=== PATIENT | female | born 1985 ===

== ENCOUNTER 2018-02-28 11:44 | Observation (INO) | payer OTHER ==
[2018-02-28] MEDS ORDERED: Sodium Chloride 0.9% 1,000 ML IV STA (13:03)
--- NOTE | 2018-02-28 13:53 | ED PDOC ---
Syncope/Near Syncope/Dizziness Time Seen by Provider: 02/28/18 12:53 Chief Complaint (Nursing): Headache Chief Complaint (Provider): Dizziness History Per: Patient History/Exam Limitations: no limitations Onset/Duration Of Symptoms: Hrs (this morning) Current Symptoms Are (Timing): Still Present Seizure Or Post-ictal Symptoms: None Fall Associated With With Symptoms: No Additional Complaint(s): Evie Vargas is a 32 year old female, with no significant past medical history, who presents to the emergency department for evaluation of dizziness, nausea, headache, and weakness throughout her body onset since this morning. Patient reports feeling like she is about to pass out and states prior to arrival she had an episode of numbness to her legs and arms but has since resolved. She also reports shakes and chills in her arms. Patient states she is feeling better but still has a headache and dizziness which she states is exacerbated with movement of the head. Patient also had x1 vomiting episode but denies any current weakness, abdominal pain, chest pain or shortness of breath. No further medical complaints. PMD: Clinic Past Medical History Reviewed: Historical Data, Nursing Documentation, Vital Signs Vital Signs: Last Vital Signs Temp 97.7 F 02/28/18 12:08 Pulse 63 02/28/18 12:08 Resp 20 02/28/18 12:08 BP 122/83 02/28/18 12:08 Pulse Ox 99 02/28/18 12:08 - Medical History PMH: No Chronic Diseases Denies: HIV, Chronic Kidney Disease - Surgical History Surgical History: No Surg Hx - Family History Family History: States: Unknown Family Hx - Social History Current smoker - smoking cessation education provided: No Alcohol: None Drugs: Denies - Home Medications Home Medications: Ambulatory Orders Medication Instructions Recorded No Known Home Med 02/28/18 - Allergies Allergies/Adverse Reactions: Allergies Allergy/AdvReac Type Severity Reaction Status Date / Time No Known Allergies Allergy Verified 03/03/15 16:58 Review of Systems ROS Statement: Except As Marked, All Systems Reviewed And Found Negative Constitutional: Positive for: Chills, Weakness (throughout body) Cardiovascular: Negative for: Chest Pain Respiratory: Negative for: Shortness of Breath Gastrointestinal: Positive for: Nausea, Vomiting (x1). Negative for: Abdominal Pain Neurological: Positive for: Numbness (to arms and legs but resolved), Headache, Dizziness, Other (shaking in arms). Negative for: Weakness Physical Exam - Reviewed Nursing Documentation Reviewed: Yes Vital Signs Reviewed: Yes - Physical Exam Head Exam: Positive for: ATRAUMATIC, NORMAL INSPECTION, NORMOCEPHALIC Skin: Positive for: Normal Color, Warm, Dry Eye Exam: Positive for: Normal appearance, EOMI, PERRL Neck: Positive for: Painless ROM Cardiovascular/Chest: Positive for: Regular Rate, Rhythm. Negative for: Murmur Respiratory: Positive for: Normal Breath Sounds. Negative for: Respiratory Distress Gastrointestinal/Abdominal: Positive for: Normal Exam, Soft. Negative for: Tenderness Back: Positive for: Normal Inspection Extremity: Positive for: Normal ROM (upper and lower extremities). Negative for : Deformity, Swelling Neurologic/Psych: Positive for: Alert, Oriented. Negative for: Motor/Sensory Deficits - Laboratory Results Result Diagrams: 03/01/18 06:00 03/01/18 06:00 - ECG O2 Sat by Pulse Oximetry: 99 (RA) Pulse Ox Interpretation: Normal - Progress Re-evaluation Time: 19:00 Condition: Re-examined, Improving,but remains with symptoms Medical Decision Making Medical Decision Making: Time: 12:53 Initial Impression: Dizziness, vomiting and headache Initial Plan: --Head w/o contrast [CT] --EKG --BMP --CBC w/ differential --Antivert 25 mg PO --Sodium Chloride 1,000 ml IV 1,000 mls/hr --Zofran Inj 4 mg PO --Reevaluation 14:[address] FINDINGS: HEMORRHAGE: No intracranial hemorrhage. BRAIN: No mass effect or edema. No atrophy or chronic microvascular ischemic changes. VENTRICLES: Unremarkable. No hydrocephalus. CALVARIUM: Unremarkable. PARANASAL SINUSES: Unremarkable as visualized. No significant inflammatory changes. MASTOID AIR CELLS: Unremarkable as visualized. No inflammatory changes. OTHER FINDINGS: None. IMPRESSION: No acute intracranial abnormalities. No significant findings to account for the clinical presentation. ----- Scribe Attestation: Documented by Edvin Fu, acting as a scribe for Marietta Harrell MD. Provider Scribe Attestation: All medical record entries made by the Scribe were at my direction and personally dictated by me. I have reviewed the chart and agree that the record accurately reflects my personal performance of the history, physical exam, medical decision making, and the department course for this patient. I have also personally directed, reviewed, and agree with the discharge instructions and disposition. Disposition - Clinical Impression Clinical Impression: Dizziness - Patient ED Disposition Is Patient to be Admitted: No Doctor Will See Patient In The: Office Counseled Patient/Family Regarding: Studies Performed, Diagnosis, Need For Followup - Disposition Disposition: Routine/Home Disposition Time: 19:00 Condition: FAIR - Pt Status Changed To: Hospital Disposition Of: Observation - POA Present On Arrival: None
[2018-02-28 14:10] LABS: BASO % 0.3 % (0.0-2.0); EOS % 0.4 % (0.0-4.0); HEMOGLOBIN 13.8 g/dL (12.0-16.0); LYMPH # 0.9 K/uL (1.0-4.3); LYMPH % 7.7 % (20.0-40.0); MEAN CELL VOLUME 90.9 fl (81.0-99.0); MEAN CORPUSCULAR HEMOGLOBIN 30.6 pg (27.0-31.0); MEAN CORPUSCULAR HGB CONC 33.7 g/dL (33.0-37.0); MEAN PLATELET VOLUME 9.7 fl (7.2-11.7); MONO # 0.5 K/uL (0.0-0.8); MONO % 4.3 % (0.0-10.0); NEUT # 10.6 K/uL (1.8-7.0); NEUT % 87.3 % (50.0-75.0); NRBC % 0.1 % (0.0-0.0); PLATELET COUNT 190 K/uL (130-400); RED CELL DISTRIBUTION WIDTH 13.2 % (11.5-14.5); WHITE BLOOD COUNT 12.1 K/uL (4.8-10.8)
--- NOTE | 2018-02-28 14:35 | CT ---
Date of service: 02/28/2018 PROCEDURE: CT HEAD WITHOUT CONTRAST. HISTORY: dizziness COMPARISON: None available. TECHNIQUE: Axial computed tomography images were obtained through the head/brain without intravenous contrast. Coronal and sagittal reconstructed images. Radiation dose: Total exam DLP = 773.20 mGy-cm. This CT exam was performed using one or more of the following dose reduction techniques: Automated exposure control, adjustment of the mA and/or kV according to patient size, and/or use of iterative reconstruction technique. FINDINGS: HEMORRHAGE: No intracranial hemorrhage. BRAIN: No mass effect or edema. No atrophy or chronic microvascular ischemic changes. VENTRICLES: Unremarkable. No hydrocephalus. CALVARIUM: Unremarkable. PARANASAL SINUSES: Unremarkable as visualized. No significant inflammatory changes. MASTOID AIR CELLS: Unremarkable as visualized. No inflammatory changes. OTHER FINDINGS: None. IMPRESSION: No acute intracranial abnormalities. No significant findings to account for the clinical presentation.
[2018-02-28 14:47] LABS: EOSINOPHIL 1 % (0-7); LYMPHOCYTE 4 % (20-50); MONOCYTE 7 % (0-10); NEUTROPHIL 88 % (42-75); PLATELET ESTIMATE NORMAL (NORMAL); TOTAL CELLS COUNTED 100
[2018-02-28 15:09] LABS: BLOOD UREA NITROGEN 12 mg/dl (7-17); CALCIUM 9.1 mg/dL (8.4-10.2); GFR AFRICAN-AMERICAN > 60; GFR NON-AFRICAN AMERICAN > 60
[2018-02-28] MEDS ORDERED: Dexamethasone 10 MG in Sodium Chloride 0.9% 50 ML IV ONE (19:26)
[2018-02-28] MEDS ORDERED: Aspirin 325 mg EC Tablets PO ONE (19:39)
--- NOTE | 2018-02-28 20:21 | CP.PCM.HP ---
History of Present Illness - History of Present Illness History of Present Illness: Hx taken from patient Full code PMD: NHC 32 y/o F with no significant PMhx presented to ED with c/o near syncope episode and dizziness. Patient states she woke up fine this AM but then started feeling dizzy while she was doing some groceries. She describes those episodes as lightheadedness but then returned home and was very nauseated, had 1 NBNB vomit and had to lie down in bed because "everything started ti spin around her" and started feeling a severe pressure like headache mostly frontal and generalized numbness, chest pressure and SOB. Patient denies any similar episodes in the past. Admits a lot of stress recently due to work hours and sick daughter as well as lack of sleep. Denies taking any medications, drugs or ETOH. Denies diarrhea, fever or sick contacts. Since arrival to ER patient improved slowly after treatment but was decided to admit overnight for Neuro eval since vertigo was still present, although markedly improved. ED course: CT head: No acute changes EKG: NSR remarkable labs: WBC 12 VS WNL PMHx: Denies SxHx: Denies FHx: Unknown SHx: Denies x3 [employer]: Has IUD and periods are very irregular. Doesn't recall LMP Present on Admission - Present on Admission Any Indicators Present on Admission: No Review of Systems - Review of Systems All systems: reviewed and no additional remarkable complaints except (Those described on HPI) Past Patient History - Past Medical History & Family History Past Medical History?: No - Past Social History Smoking Status: Never Smoked Alcohol: None Drugs: Denies Home Situation {Lives}: With Family - CARDIAC Hx Cardiac Disorders: No - PULMONARY Hx Respiratory Disorders: No - NEUROLOGICAL Hx Neurological Disorder: No - HEENT Hx HEENT Problems: No - RENAL Hx Chronic Kidney Disease: No - ENDOCRINE/METABOLIC Hx Endocrine Disorders: No - HEMATOLOGICAL/ONCOLOGICAL Hx Human Immunodeficiency Virus (HIV): No - INTEGUMENTARY Hx Dermatological Problems: No - MUSCULOSKELETAL/RHEUMATOLOGICAL Hx Falls: No - GASTROINTESTINAL Hx Gastroesophageal Reflux: Yes - GENITOURINARY/GYNECOLOGICAL Hx Genitourinary Disorders: No - PSYCHIATRIC Hx Psychophysiologic Disorder: No Hx Substance Use: No - SURGICAL HISTORY Hx Surgeries: No - ANESTHESIA Hx Anesthesia: No Meds Allergies/Adverse Reactions: Allergies Allergy/AdvReac Type Severity Reaction Status Date / Time No Known Allergies Allergy Verified 03/03/15 16:58 Physical Exam - Constitutional Appears: Non-toxic, No Acute Distress - Head Exam Head Exam: ATRAUMATIC, NORMAL INSPECTION - Eye Exam Eye Exam: EOMI, Normal appearance, PERRL - ENT Exam ENT Exam: Mucous Membranes Moist - Neck Exam Neck exam: Positive for: Full Rom. Negative for: Lymphadenopathy - Respiratory Exam Respiratory Exam: Clear to Auscultation Bilateral, NORMAL BREATHING PATTERN. absent: Decreased Breath Sounds, Rales, Rhonchi, Wheezes, Stridor - Cardiovascular Exam Cardiovascular Exam: REGULAR RHYTHM, +S1, +S2. absent: Gallop, Systolic Murmur - GI/Abdominal Exam GI & Abdominal Exam: Normal Bowel Sounds, Soft. absent: Firm, Guarding, Hernia , Rebound, Rigid, Tenderness - Extremities Exam Extremities exam: Positive for: normal capillary refill, normal inspection, pedal pulses present. Negative for: calf tenderness, pedal edema - Neurological Exam Neurological exam: Alert, CN II-XII Intact, Oriented x3 - Psychiatric Exam Psychiatric exam: Normal Affect, Normal Mood - Skin Skin Exam: Normal Color, Warm Results - Vital Signs Recent Vital Signs: Last Vital Signs Temp 98 F 02/28/18 19:27 Pulse 80 02/28/18 19:27 Resp 19 02/28/18 19:27 BP 109/78 02/28/18 19:27 Pulse Ox 98 02/28/18 19:27 - Labs Result Diagrams: 02/28/18 13:50 02/28/18 13:50 Labs: Laboratory Results - last 24 hr 02/28/18 02/28/18 13:50 13:50 WBC 12.1 H D RBC 4.50 Hgb 13.8 Hct 40.9 MCV 90.9 MCH 30.6 MCHC 33.7 RDW 13.2 Plt Count 190 MPV 9.7 Neut % (Auto) 87.3 H Lymph % (Auto) 7.7 L [place] % (Auto) 4.3 Eos % (Auto) 0.4 Baso % (Auto) 0.3 Neut # (Auto) 10.6 H Lymph # (Auto) 0.9 L [place] # (Auto) 0.5 Eos # (Auto) 0.0 Baso # (Auto) 0.0 Neutrophils % (Manual) 88 H Lymphocytes % (Manual) 4 L Monocytes % (Manual) 7 Eosinophils % (Manual) 1 Platelet Estimate Normal RBC Morphology Normal Sodium 138 Potassium 3.6 Chloride 104 Carbon Dioxide 22 Anion Gap 16 BUN 12 Creatinine 0.5 L Est GFR ( Amer) > 60 Est GFR (Non-Af Amer) > 60 Random Glucose 124 H Calcium 9.1 Assessment & Plan - Assessment and Plan (Free Text) Assessment: 32 y/o F with no significant PMhx is admitted for near syncope/vertigo Near syncope/vertigo Acute VS stable CT head unremarkable EKG: Normal sinus CMP unremarkable Improved after ER treatment but persistent Neurologic exam WNL R/O Neuro pathology VS Vasovagal Neurology consult F/U Vit B12, Folate, Mg, TSH, Phosp Upreg ordered and negative Leukocytosis Mild, Unknown F/U UA and UCx F/U CBC AM DVT prophylaxis SCDs for now
[2018-02-28 22:49] LABS: SQUAMOUS EPITHIAL 1 /hpf (0-5); URINE BACTERIA MANY (<OCC); URINE BILIRUBIN NEGATIVE (NEGATIVE); URINE BLOOD SMALL (NEGATIVE); URINE CLARITY SLIGHTY-CLOUDY (Clear); URINE COLOR YELLOW (YELLOW); URINE GLUCOSE (UA) NEG (Normal); URINE LEUKOCYTE ESTERASE NEG Leu/uL (Negative); URINE PROTEIN NEGATIVE (NEGATIVE); URINE UROBILINOGEN 0.2-1.0 mg/dL (0.2-1.0)
[2018-03-01 06:43] LABS: HEMOGLOBIN 13.7 g/dL (12.0-16.0); MEAN CELL VOLUME 90.8 fl (81.0-99.0); MEAN CORPUSCULAR HEMOGLOBIN 30.8 pg (27.0-31.0); RBC 4.43 Mil/uL (3.80-5.20); RED CELL DISTRIBUTION WIDTH 13.2 % (11.5-14.5); WHITE BLOOD COUNT 10.3 K/uL (4.8-10.8)
[2018-03-01 06:58] LABS: ALB/GLOB RATIO 1.3 (1.0-2.1); ALT/SGPT 24 U/L (9-52); AST/SGOT 19 U/L (14-36); BLOOD UREA NITROGEN 14 mg/dl (7-17); CALCIUM 9.3 mg/dL (8.4-10.2); GFR AFRICAN-AMERICAN > 60; GFR NON-AFRICAN AMERICAN > 60
--- NOTE | 2018-03-01 09:19 | CARD ---
APPROVED REPORT Date of service: 02/28/2018 EKG Measurement Heart [id number] <Conclusion> Normal sinus rhythm Non specific st changes
--- NOTE | 2018-03-01 12:31 | CP.PCM.DIS ---
Provider - Provider Date of Admission: 02/28/18 19:25 Attending physician: Lizzy Hinds MD Time Spent in preparation of Discharge (in minutes): 15 Hospital Course - Lab Results Lab Results: Most Recent Lab Values WBC 10.3 K/uL (4.8-10.8) 03/01/18 06:00 RBC 4.43 Mil/uL (3.80-5.20) 03/01/18 06:00 Hgb 13.7 g/dL (12.0-16.0) 03/01/18 06:00 Hct 40.2 % (34.0-47.0) 03/01/18 06:00 MCV 90.8 fl (81.0-99.0) 03/01/18 06:00 MCH 30.8 pg (27.0-31.0) 03/01/18 06:00 MCHC 34.0 g/dL (33.0-37.0) 03/01/18 06:00 RDW 13.2 % (11.5-14.5) 03/01/18 06:00 Plt Count 197 K/uL (130-400) 03/01/18 06:00 MPV 9.7 fl (7.2-11.7) 02/28/18 13:50 Neut % (Auto) 87.3 % (50.0-75.0) H 02/28/18 13:50 Lymph % (Auto) 7.7 % (20.0-40.0) L 02/28/18 13:50 [place] % (Auto) 4.3 % (0.0-10.0) 02/28/18 13:50 Eos % (Auto) 0.4 % (0.0-4.0) 02/28/18 13:50 Baso % (Auto) 0.3 % (0.0-2.0) 02/28/18 13:50 Neut # (Auto) 10.6 K/uL (1.8-7.0) H 02/28/18 13:50 Lymph # (Auto) 0.9 K/uL (1.0-4.3) L 02/28/18 13:50 [place] # (Auto) 0.5 K/uL (0.0-0.8) 02/28/18 13:50 Eos # (Auto) 0.0 K/uL (0.0-0.7) 02/28/18 13:50 Baso # (Auto) 0.0 K/uL (0.0-0.2) 02/28/18 13:50 Neutrophils % (Manual) 88 % (42-75) H 02/28/18 13:50 Lymphocytes % (Manual) 4 % (20-50) L 02/28/18 13:50 Monocytes % (Manual) 7 % (0-10) 02/28/18 13:50 Eosinophils % (Manual) 1 % (0-7) 02/28/18 13:50 Platelet Estimate Normal (NORMAL) 02/28/18 13:50 RBC Morphology Normal (NORMAL) 02/28/18 13:50 Sodium 139 mmol/l (132-148) 03/01/18 06:00 Potassium 4.2 MMOL/L (3.6-5.0) 03/01/18 06:00 Chloride 109 mmol/L (98-107) H 03/01/18 06:00 Carbon Dioxide 20 mmol/L (22-30) L 03/01/18 06:00 Anion Gap 14 (10-20) 03/01/18 06:00 BUN 14 mg/dl (7-17) 03/01/18 06:00 Creatinine 0.6 mg/dl (0.7-1.2) L 03/01/18 06:00 Est GFR ( Amer) > 60 03/01/18 06:00 Est GFR (Non-Af Amer) > 60 03/01/18 06:00 Random Glucose 131 mg/dL (65-105) H 03/01/18 06:00 Calcium 9.3 mg/dL (8.4-10.2) 03/01/18 06:00 Phosphorus 2.2 mg/dl (2.5-4.5) L 02/28/18 22:20 Magnesium 1.9 MG/DL (1.6-2.3) 02/28/18 22:20 Total Bilirubin 0.5 mg/dl (0.2-1.3) 03/01/18 06:00 AST 19 U/L (14-36) 03/01/18 06:00 ALT 24 U/L (9-52) 03/01/18 06:00 Alkaline Phosphatase 43 U/L (38-126) 03/01/18 06:00 Total Protein 7.2 G/DL (6.3-8.2) 03/01/18 06:00 Albumin 4.0 g/dL (3.5-5.0) 03/01/18 06:00 Globulin 3.2 gm/dL (2.2-3.9) 03/01/18 06:00 Albumin/Globulin Ratio 1.3 (1.0-2.1) 03/01/18 06:00 Vitamin B12 592 pg/mL (239-931) 02/28/18 22:20 TSH 3rd Generation 0.88 mIU/ML (0.46-4.68) 02/28/18 22:20 Urine Color Yellow (YELLOW) 02/28/18 22:30 Urine Clarity Slighty-cloudy (Clear) 02/28/18 22:30 Urine pH 8.0 (5.0-8.0) 02/28/18 22:30 Ur Specific [place] 1.008 (1.003-1.030) 02/28/18 22:30 Urine Protein Negative mg/dL (NEGATIVE) 02/28/18 22:30 Urine Glucose (UA) Neg mg/dL (Normal) 02/28/18 22:30 Urine Ketones Negative mg/dL (NEGATIVE) 02/28/18 22:30 Urine Blood Small (NEGATIVE) 02/28/18 22:30 Urine Nitrate Negative (NEGATIVE) 02/28/18 22:30 Urine Bilirubin Negative (NEGATIVE) 02/28/18 22:30 Urine Urobilinogen 0.2-1.0 mg/dL (0.2-1.0) 02/28/18 22:30 Ur Leukocyte Esterase Neg [place]/uL (Negative) 02/28/18 22:30 Urine RBC (Auto) 2 /hpf (0-3) 02/28/18 22:30 Urine Microscopic WBC 8 /hpf (0-5) H 02/28/18 22:30 Ur Squamous Epith Cells 1 /hpf (0-5) 02/28/18 22:30 Urine Bacteria Many (<OCC) H 02/28/18 22:30 - Hospital Course Hospital Course: 32 yo f with no significant PMH presented to ER due to near syncope episode and dizziness. Pt was admitted for presyncope. Pt was admitted for near syncope/ vertigo. Pt was evaluated for CVS. Pt was treated medically and have improved. Pt have no complain at moment, no dizziness, or syncope. Pt is comfortable to go home. Medical team approve pt is medically stable to be discharged F/U with Neuro in 1 to 2 weeks. F/U with PCP in 1 week Discharge Exam - Head Exam Head Exam: ATRAUMATIC, NORMAL INSPECTION, NORMOCEPHALIC - Eye Exam Eye Exam: EOMI, Normal appearance, PERRL Pupil Exam: NORMAL ACCOMODATION, PERRL - ENT Exam ENT Exam: Normal Exam - Neck Exam Neck exam: Full Rom - Respiratory Exam Respiratory Exam: Clear to PA & Lateral, NORMAL BREATHING PATTERN, UNREMARKABLE - Cardiovascular Exam Cardiovascular Exam: REGULAR RHYTHM, +S1, +S2 - GI/Abdominal Exam GI & Abdominal Exam: Normal Bowel Sounds, Unremarkable - Extremities Exam Extremities exam: full ROM - Back Exam Back exam: FULL ROM. absent: CVA tenderness (L), CVA tenderness (R) - Neurological Exam Neurological exam: Alert, CN II-XII Intact, Normal Gait, Oriented x3 - Psychiatric Exam Psychiatric exam: Normal Affect, Normal Mood - Skin Skin Exam: Dry, Intact, Normal Color, Warm Discharge Plan - Follow Up Plan Condition: GOOD Disposition: HOME/ ROUTINE Instructions: Vertigo (a Type of Dizziness), Acute Abdominal Pain (DC), Acute Abdominal Pain (GEN) Additional Instructions: Return for worsening. Follow up with your PCP in 2-3 days. Take your medications as instructed. Referrals: [facility] [Outside]
[2018-03-01 12:37] VITALS: BP 114/75; PULSE 64; RESP 18; TEMP 98.5
[2018-03-01 12:55] LABS: FOLATE 18.4 ng/mL
[2018-03-03 18:22] VITALS: O2SAT 99
== END 2018-03-01 13:28 | disposition home or self-care (01) ==
LOC: H.ER 11:44 → H.ERHOLD 19:25
PROVIDERS: ADMIT Family Medicine Geriatric Medicine; ATTEND Family Medicine Geriatric Medicine
DX: R55 Syncope and collapse (principal); R42 Dizziness and giddiness; K21.9 Gastro-esophageal reflux disease without esophagitis; D72.829 Elevated white blood cell count, unspecified
CPT/HCPCS: 70450; 80048; 80053; 81003; 81025; 82607; 82746; 83735; 84100; 84443; 85025; 85027; 93005; 96374; 96375; 99285; G0378; J1100; J2060; J7030